=== PATIENT | female | born 1970 | race Caucasian/White ===

== ENCOUNTER 2025-01-27 08:24 | Emergency (ER) | payer OTHER ==
[~2025-01-27] VITALS: Ht 172.7 cm; Wt 108.0 kg
[2025-01-27 08:32] VITALS: BP 192/106; PULSE 62; RESP 16; O2SAT 99
[2025-01-27] MEDS: ibuprofen tablet 400 MG TABLET PO ONE (10:15)
[2025-01-27 10:21] VITALS: TEMP 98
== END 2025-01-27 10:23 | disposition home or self-care (01) ==
LOC: ER 08:24
DX: M79.631 Pain in right forearm (principal); Z88.5 Allergy status to narcotic agent; W20.8XXA Other cause of strike by thrown, projected or falling object, initial encounter; Y93.89 Activity, other specified; Y92.89 Other specified places as the place of occurrence of the external cause; Y99.8 Other external cause status
CPT/HCPCS: 73090; 99283; A6449